=== PATIENT | male | born 1940 | race Caucasian/White ===

== ENCOUNTER 2022-10-11 09:03 | Inpatient (IN) | payer MEDICARE, BC ==
[2022-10-11] MEDS ORDERED: Diltiazem 25 MG/5 ML SDV IVPUSH STA ×2 (09:46→10:19)
[2022-10-11] MEDS ORDERED: Rivaroxaban 10 MG Tab PO STA (09:50)
[2022-10-11] MEDS ORDERED: Diltiazem 125 MG in Sodium Chloride 0.9% 100 ML IV SCH ×2 (10:00→15:30)
[2022-10-11] MEDS: Sodium Chloride 0.9% 10 ML Syringe FLUSH PRN ×2 (10:21→10:42)
[2022-10-11] MEDS ORDERED: Sodium Chloride 0.9% 1,000 ML IV ONE (10:25)
[2022-10-11] MEDS ORDERED: Iopamidol 755 Mg/ML 100 ML Bottle IVPUSH ONE (10:41)
[2022-10-11] MEDS ORDERED: Sodium Chloride 0.9% 10 ML Syringe FLUSH PRN ×2 (10:41→15:24)
[2022-10-11] MEDS ORDERED: Sodium Chloride 0.9% 100 ML IV SCH (10:45)
[2022-10-11] MEDS ORDERED: Acetaminophen 325 MG Tab PO ONE (11:46)
[2022-10-11 12:58] LABS: CORONAVIRUS COVID-19 NAA NEGATIVE (NEGATIVE)
[2022-10-11] MEDS ORDERED: Ondansetron 4 MG/2 ML SDV IV PRN (15:24)
[2022-10-11] MEDS ORDERED: Polyethylene Glycol 3350 Powder 17 GM Packet PO PRN (15:24)
[2022-10-11] MEDS ORDERED: Docusate Sodium 100 MG Cap PO PRN (15:24)
[2022-10-11] MEDS ORDERED: Acetaminophen 325 MG Tab PO PRN (15:24)
[2022-10-11] MEDS ORDERED: Ondansetron 4 MG Tab.DIS PO PRN (15:24)
[2022-10-11] MEDS ORDERED: Diltiazem IR 60 MG Tab PO SCH (15:30)
[2022-10-11] MEDS: Diltiazem IR 30 MG Tab PO SCH ×2 (18:19→23:38)
[2022-10-11] MEDS: Phenytoin 50 MG Tab.Chew PO SCH (20:34)
[2022-10-11] MEDS: Tamsulosin 0.4 MG Cap.ER PO SCH (20:34)
[2022-10-11] MEDS: Pravastatin 20 MG Tab PO SCH (20:34)
[2022-10-11] MEDS: Pantoprazole 40 MG Tab.CR PO SCH (20:34)
[2022-10-11] MEDS: Latanoprost 0.005% Ophth Soln 2.5 ML Bottle EYEBOTH SCH (20:39)
[2022-10-12] MEDS: Diltiazem IR 30 MG Tab PO SCH ×4 (05:56→23:36)
[2022-10-12] MEDS: Pantoprazole 40 MG Tab.CR PO SCH (05:56)
[2022-10-12] MEDS: Rivaroxaban 10 MG Tab PO SCH (08:28)
[2022-10-12] MEDS: Tamsulosin 0.4 MG Cap.ER PO SCH (08:28)
[2022-10-12] MEDS: Metoprolol Tartrate 25 MG Tab PO SCH ×2 (08:28→20:26)
[2022-10-12] MEDS: Cetirizine 10 MG Tab PO SCH (08:28)
[2022-10-12] MEDS: Phenytoin 50 MG Tab.Chew PO SCH (09:29)
[2022-10-12] MEDS: PHENYTOIN 100 MG PO SCH ×2 (09:29→20:28)
[2022-10-12] MEDS: Pravastatin 20 MG Tab PO SCH (20:25)
[2022-10-12] MEDS: Latanoprost 0.005% Ophth Soln 2.5 ML Bottle EYEBOTH SCH (20:27)
[2022-10-13] MEDS: Diltiazem IR 30 MG Tab PO SCH ×2 (06:13→11:30)
[2022-10-13] MEDS: Pantoprazole 40 MG Tab.CR PO SCH (06:14)
[2022-10-13] MEDS: Tamsulosin 0.4 MG Cap.ER PO SCH (08:37)
[2022-10-13] MEDS: Metoprolol Tartrate 25 MG Tab PO SCH (08:37)
[2022-10-13] MEDS: Rivaroxaban 10 MG Tab PO SCH (08:37)
[2022-10-13] MEDS: Cetirizine 10 MG Tab PO SCH (08:37)
[2022-10-13] MEDS: PHENYTOIN 100 MG PO SCH ×2 (08:38→20:12)
[2022-10-13] MEDS: Metoprolol Succinate 50 MG Tab.ER PO SCH (17:36)
[2022-10-13] MEDS: Diltiazem 180 MG Cap.CD PO SCH (17:38)
[2022-10-13] MEDS: Pravastatin 20 MG Tab PO SCH (20:10)
[2022-10-13] MEDS: Latanoprost 0.005% Ophth Soln 2.5 ML Bottle EYEBOTH SCH (20:11)
[2022-10-14] MEDS: Pantoprazole 40 MG Tab.CR PO SCH (06:06)
[2022-10-14] MEDS: Metoprolol Succinate 50 MG Tab.ER PO SCH (07:59)
[2022-10-14] MEDS: Cetirizine 10 MG Tab PO SCH (07:59)
[2022-10-14] MEDS: Diltiazem 180 MG Cap.CD PO SCH (08:00)
[2022-10-14] MEDS: Tamsulosin 0.4 MG Cap.ER PO SCH (08:00)
[2022-10-14] MEDS: Rivaroxaban 10 MG Tab PO SCH (08:00)
[2022-10-14] MEDS: PHENYTOIN 100 MG PO SCH (08:01)
== END 2022-10-14 13:54 | disposition home or self-care (01) | DRG 309 ==
LOC: JD.ED 09:03 → JD.ICU 15:24
PROVIDERS: ADMIT Hospitalist; ATTEND Internal Medicine
DX: I48.91 Unspecified atrial fibrillation (principal); C91.10 Chronic lymphocytic leukemia of B-cell type not having achieved remission; Z20.822 Contact with and (suspected) exposure to COVID-19; R56.9 Unspecified convulsions; H91.90 Unspecified hearing loss, unspecified ear; N40.0 Benign prostatic hyperplasia without lower urinary tract symptoms; G89.29 Other chronic pain; M54.9 Dorsalgia, unspecified; Z98.41 Cataract extraction status, right eye; Z98.42 Cataract extraction status, left eye; Z90.89 Acquired absence of other organs; Z98.890 Other specified postprocedural states; Z88.8 Allergy status to other drugs, medicaments and biological substances
CPT/HCPCS: 0241U; 36415; 71045; 71045-26; 71275; 71275-26; 80048; 80053; 83735; 84443; 84484; 85025; 85379; 85610; 85730; 87641; 93005; 93010; 93307; 96361; 96374; 99285; 99285-25; A9270-GY; J3490; J7030; Q9967